=== PATIENT | male | born 1935 | race Caucasian/White ===

== ENCOUNTER 2024-06-23 11:00 | Outpatient (RCR) | payer OTHER, SELFPAY | END 2024-06-23 23:59 | disposition home or self-care (01) | LOC: PT 11:00 | PROVIDERS: Visit Provider Nurse Practitioner Family | DX: M51.362 Other intervertebral disc degeneration, lumbar region with discogenic back pain and lower extremity pain (principal) | CPT/HCPCS: 97110; 97140; 97163; 97530 ==